=== PATIENT | female | born 1945 | race Caucasian/White ===

== ENCOUNTER 2022-05-23 18:30 | Emergency (ER) | payer MEDICARE, OTHER ==
[~2022-05-23 18:30] MED LIST: ACTOS30 MG PO; ASPIRIN EC81 MG PO; ATORVASTATIN CA20 MG PO; BRILINTA90 MG PO; BYDUREON BCISE 2 MG; CEFUROXIME500 MG PO; EFFEXOR XR37.5 MG PO; FUROSEMIDE40 MG PO; GLUCOTROL5 MG PO; IMDUR ER TAB 3030 MG PO; IMDUR ER TAB 6060 MG PO; K-DUR TAB 20 M20 MEQ PO; LEVOTHYROXINE100 MCG PO; LIPITOR TAB 2020 MG PO; LISINOPRIL10 MG PO; METOPROLOL SUCC25 MG PO; NORVASC 5 MG TAB5 MG PO; NORVASC5 MG PO; OMNICEF 300 MG300 MG PO; PANTOPRAZOLE SO40 MG PO; PLAVIX 75 MG TA75 MG PO; PLAVIX75 MG PO; PRAVACHOL40 MG PO; TESSALON PERLE100 MG PO; VALSARTAN80 MG PO; ZESTRIL 40 MG T40 MG PO; ZITHROMAX500 MG PO
[2022-05-23] MEDS ORDERED: HYDROCODON-ACE1 EAC4 PO (21:18)
[2022-05-23] MEDS ORDERED: VALTREX1000 MG PO (21:18)
== END 2022-05-23 22:07 | disposition home or self-care (01) ==
LOC: ER1 18:30
DX: B02.9 Zoster without complications (principal); I25.10 Atherosclerotic heart disease of native coronary artery without angina pectoris; I10 Essential (primary) hypertension; E11.9 Type 2 diabetes mellitus without complications
CPT/HCPCS: 99282